=== PATIENT | male | born 1960 | race Two or more races ===

== ENCOUNTER 2021-02-27 04:36 | Day surgery (SDC) | payer OTHER ==
[2021-02-26 14:01] VITALS: BMI 38.7
[2021-02-27 09:25] VITALS: TEMP 97.8
[2021-02-27 10:23] VITALS: BP 138/82; PULSE 74
== END 2021-02-27 10:22 | disposition home or self-care (01) ==
LOC: JASU-ENDO 04:36
PROVIDERS: ATTEND Internal Medicine Gastroenterology
PROC: 0DBF8ZX Excision of Right Large Intestine, Via Natural or Artificial Opening Endoscopic, Diagnostic (ICD-10-PCS; 2021-02-27)
PROC: 0DBC8ZX Excision of Ileocecal Valve, Via Natural or Artificial Opening Endoscopic, Diagnostic (ICD-10-PCS; principal; 2021-02-27 08:49)
DX: Z12.11 Encounter for screening for malignant neoplasm of colon (principal); K52.9 Noninfective gastroenteritis and colitis, unspecified; K63.5 Polyp of colon; K64.8 Other hemorrhoids; K57.30 Diverticulosis of large intestine without perforation or abscess without bleeding
CPT/HCPCS: 88305-TC

== ENCOUNTER 2021-04-04 06:21 | Day surgery (SDC) | payer OTHER ==
[2021-04-01 10:47] VITALS: BMI 38.2
[2021-04-04] MEDS ORDERED: EPINEPHrine 1:1,000 1 MG/1 ML - 30ML VIAL (INJECTION) ONE (07:29)
[2021-04-04] MEDS ORDERED: MIDAZOLAM HCL 2 MG/2 ML SINGLE DOSE VIAL ONE (07:39)
[2021-04-04] MEDS ORDERED: ROPIVACAINE HCL 0.5% 30ML VIAL ONE (07:39)
[2021-04-04] MEDS ORDERED: DEXAMETHASONE SOD PHOSPHATE 10 MG/1 ML VIAL ONE (07:39)
[2021-04-04] MEDS ORDERED: PROPOFOL 20 ML ONE ×2 (07:48→09:06)
[2021-04-04] MEDS ORDERED: SUCCINYLCHOLINE CHLORIDE 200 MG/10 ML SYRINGE ONE ×2 (07:48→09:09)
[2021-04-04] MEDS ORDERED: BUPIVACAINE HCL/EPINEPHRINE/PF 30 ML VIAL IJ ONE (09:25)
[2021-04-04] MEDS ORDERED: EPHEDRINE SULFATE/0.9% NACL/PF 50 MG/10 ML SYRINGE NR ONE (09:50)
[2021-04-04] MEDS ORDERED: BUPIVACAINE 0.25% /EPI 1:200,000 10 ML VIAL INF ONE (10:20)
[2021-04-04] MEDS ORDERED: oxyCODONE HCL 5 MG TABLET PO PRN (12:30)
[2021-04-04] MEDS ORDERED: PROMETHAZINE HCL 25 MG/1 ML VIAL IVPUSH PRN (12:30)
[2021-04-04] MEDS ORDERED: ONDANSETRON 4 MG/2 ML VIAL IVPUSH PRN (12:30)
[2021-04-04 14:58] VITALS: BP 136/84; PULSE 92; TEMP 97.2
== END 2021-04-04 15:00 | disposition home or self-care (01) ==
LOC: FASU 06:21
PROVIDERS: ATTEND Orthopaedic Surgery
PROC: 0SBD4ZZ Excision of Left Knee Joint, Percutaneous Endoscopic Approach (ICD-10-PCS; principal; 2021-04-04 09:39)
DX: S83.242A Other tear of medial meniscus, current injury, left knee, initial encounter (principal); M65.862 Other synovitis and tenosynovitis, left lower leg; M22.42 Chondromalacia patellae, left knee; M23.42 Loose body in knee, left knee; X58.XXXA Exposure to other specified factors, initial encounter; Y93.9 Activity, unspecified; Y92.9 Unspecified place or not applicable; Y99.9 Unspecified external cause status
CPT/HCPCS: 88304-TC; 94760; J1100

== ENCOUNTER 2023-01-24 10:35 | Emergency (ER) | payer OTHER ==
[2023-01-24 10:40] VITALS: BP 118/78; PULSE 84; RESP 18; TEMP 98; BMI 36.4
[2023-01-24] MEDS ORDERED: ACETAMINOPHEN 500 MG TABLET (FP) PO ONE (14:58)
[2023-01-24] MEDS ORDERED: ACETAMINOPHEN 500 MG TABLET (FP) ONE (15:00)
== END 2023-01-24 16:19 | disposition home or self-care (01) ==
LOC: JER 10:35 → JERFT 10:35
DX: M71.21 Synovial cyst of popliteal space [Baker], right knee (principal)
CPT/HCPCS: 93971-TC; 99284-25